=== PATIENT | female | born 1975 | race Caucasian/White ===

== ENCOUNTER 2019-03-21 16:35 | Emergency (ER) | payer BC, MEDICAID ==
[~2019-03-21] VITALS: Ht 160 cm; Wt 59.0 kg
[~2019-03-21 16:35] MED LIST: BUPR75TA4 OR; Ciprofloxacin Hydrochloride PO; IBU800T PO; Metronidazole PO; PROM25TA5 PO; TRAM50TA2 OR
[2019-03-21 17:01] VITALS: BP 147/84
== END 2019-03-21 18:05 | disposition home or self-care (01) ==
LOC: ER 16:35
DX: S90.112A Contusion of left great toe without damage to nail, initial encounter (principal); K21.9 Gastro-esophageal reflux disease without esophagitis; Z90.89 Acquired absence of other organs; F17.210 Nicotine dependence, cigarettes, uncomplicated; V28.4XXA Motorcycle driver injured in noncollision transport accident in traffic accident, initial encounter; Y93.89 Activity, other specified; Y99.8 Other external cause status; Y92.89 Other specified places as the place of occurrence of the external cause
CPT/HCPCS: 73630

== ENCOUNTER 2019-04-25 14:20 | Inpatient (IN) | payer BC, MEDICAID ==
[~2019-04-25] VITALS: Ht 160 cm; Wt 60.4 kg
[2019-04-25 15:29] LABS: Eosinophils # (auto) 0 uL; Lymphocytes # (auto) 0.6 uL; Mean Corpuscular Volume 84.5 fL (80.0-100.0); Monocytes # (auto) 0.4 uL; Neutrophils # (auto) 13.2 uL; White Blood Cell 14.3 10^3/uL (4.4-10.8)
[2019-04-25 15:32] LABS: Basophils # (auto) 0 uL; Basophils % (auto) 0.3 % (0.0-2.0); Hematocrit 41.1 % (36.0-46.0); Hemoglobin 13.5 g/dL (12.2-16.2); Lymphocytes % (auto) 4.3 % (10.0-50.0); Mean Corpuscular Hemoglobin 27.8 pg (28.0-32.0); Mean Corpuscular Hgb Conc. 32.8 g/dL (32.0-36.0); Monocytes % (auto) 2.6 % (0.0-12.0); Neutrophils % (auto) 92.8 % (37.0-80.0); Platelet Count (auto) 434 10^3/uL (140-450); Red Blood Cells 4.86 10^6/uL (4.0-5.20); Red Cell Distribution Width 16.3 % (11.8-14.3)
[2019-04-25 15:40] LABS: Alanine Aminotransferase 29 U/L (13-56); Albumin 4.4 g/dL (3.4-5.0); Anion Gap 15 (5-15); Aspartate Aminotransferase 32 U/L (15-37); BUN/Creatinine Ratio 29.3; Blood Urea Nitrogen 27 mg/dL (7-18); Calcium 9.7 mg/dL (8.5-10.1); Carbon Dioxide 24 mmol/L (21-32); Chloride 97 mmol/L (98-107); GFR African American 86 mL/min; GFR Non-African American 71 mL/min; Glucose 113 mg/dL (74-106); Potassium 3.6 mmol/L (3.5-5.1); Sodium 136 mmol/L (136-145)
[2019-04-25 15:45] LABS: Alkaline Phosphatase 97 U/L (45-117); Bilirubin, Total 0.5 mg/dL (0.2-1.0); Total Protein 8.7 g/dL (6.4-8.2)
[2019-04-25 15:53] LABS: Urine Bacteria NONE SEEN /hpf (None Seen); Urine Blood 2+ /uL (Negative); Urine Mucus FEW (None Seen); Urine Specific Gravity 1.037 (1.001-1.035); Urine WBC 3 /hpf (0 - 5)
[2019-04-25] MEDS ORDERED: SODIUM CHLORIDE 0.9% 1,000 ML IV ONE ×2 (18:39)
[2019-04-25] MEDS ORDERED: ONDANSETRON HCL 4 MG/2 ML VIAL IV ONE (18:45)
[2019-04-25] MEDS ORDERED: metroNIDAZOLE 500MG/100ML 100 ML IV ONE (19:30)
[2019-04-25] MEDS ORDERED: cefTRIAXone 1GM/50ML D5W 50 ML IV ONE (19:30)
[2019-04-25] MEDS ORDERED: cloNIDine HCL 0.1 MG TAB PO ONE (23:15)
[2019-04-26] MEDS ORDERED: ACETAMINOPHEN 325 MG TAB PO PRN (03:45)
[2019-04-26] MEDS ORDERED: cloNIDine HCL 0.1 MG TAB PO PRN (03:45)
[2019-04-26] MEDS ORDERED: HYDROcodone-ACET 5/325MG TAB PO PRN (03:45)
[2019-04-26] MEDS ORDERED: TEMAZEPAM 15 MG CAP PO PRN (03:45)
[2019-04-26] MEDS ORDERED: ONDANSETRON HCL 4 MG/2 ML VIAL IV PRN (03:45)
[2019-04-26 04:30] VITALS: BP 136/98
--- NOTE | 2019-04-26 04:30 | NUR ---
received pt from er nurse poc reviewed
[2019-04-26 04:36] LABS: Basophils # (auto) 0 uL; Basophils % (auto) 0.3 % (0.0-2.0); Eosinophils # (auto) 0 uL; Eosinophils % (auto) 0.1 % (0.0-7.0); Hematocrit 34.7 % (36.0-46.0); Hemoglobin 11.3 g/dL (12.2-16.2); Lymphocytes # (auto) 1.7 uL; Lymphocytes % (auto) 19.8 % (10.0-50.0); Mean Corpuscular Hemoglobin 27.8 pg (28.0-32.0); Mean Corpuscular Hgb Conc. 32.5 g/dL (32.0-36.0); Mean Corpuscular Volume 85.7 fL (80.0-100.0); Monocytes # (auto) 0.8 uL; Monocytes % (auto) 9.5 % (0.0-12.0); Neutrophils % (auto) 70.3 % (37.0-80.0); Platelet Count (auto) 312 10^3/uL (140-450); Red Blood Cells 4.05 10^6/uL (4.0-5.20); Red Cell Distribution Width 16.8 % (11.8-14.3); White Blood Cell 8.5 10^3/uL (4.4-10.8)
[2019-04-26 05:00] VITALS: BP 136/98
[2019-04-26 05:02] LABS: BUN/Creatinine Ratio 31.5; Calcium 8.5 mg/dL (8.5-10.1); Potassium 3.5 mmol/L (3.5-5.1)
[2019-04-26] MEDS ORDERED: IBUP800T24 PO (05:11)
[2019-04-26] MEDS: metroNIDAZOLE 500MG/100ML 100 ML IV SCH ×2 (05:52→14:32)
[2019-04-26] MEDS ORDERED: CIPROFLOXACIN 400MG/200ML 200 ML IV ONE (07:05)
--- NOTE | 2019-04-26 07:30 | NUR ---
Opening Note Received report from shift boss RN. Patient is awake, alert and oriented x4. No signs or symptoms of distress noted at this time. Patient denies pain at this time. Patient is on room air, respirations even and unlabored. Reviewed plan of care with patient, patient verbalized understanding. Bed in low and locked position,call light within reach. Will continue to monitor Q1 hour and PRN.
--- NOTE | 2019-04-26 07:40 | NUR ---
report given to am nurse poc reviewed
[2019-04-26 09:00] VITALS: BP 146/86
[2019-04-26] MEDS: ENALAPRIL MALEATE 10 MG TAB PO SCH (09:58)
[2019-04-26] MEDS: buPROPion HCL 75 MG TAB PO SCH (09:58)
--- NOTE | 2019-04-26 10:23 | NUR ---
Dr. Perez at bedside Updating patient on plan of care. Patient to have EGD tomorrow. Will continue to monitor Q1 hour and PRN.
[2019-04-26 11:25] LABS: INR 1.03 (0.9-1.15)
[2019-04-26 13:00] VITALS: BP 114/71
[2019-04-26] MEDS: PANTOPRAZOLE 40 MG TAB PO SCH ×2 (14:32→21:07)
[2019-04-26] MEDS: SODIUM CHLORIDE 0.9% 1,000 ML IV SCH (15:30)
[2019-04-26 17:00] VITALS: BP 105/66
--- NOTE | 2019-04-26 17:30 | NUR ---
consents signed and placed in chart
--- NOTE | 2019-04-26 19:11 | NUR ---
Closing Note Report given to warehouse shift supervisor RN. No signs or symptoms of distress noted at this time.
--- NOTE | 2019-04-26 19:30 | NUR ---
received pt from day rn poc reviewed
[2019-04-26] MEDS ORDERED: cefTRIAXone 1GM/50ML D5W 50 ML IV SCH (21:00)
--- NOTE | 2019-04-26 21:35 | NUR ---
pt had liquid green stool cdiff protocol initiated, specimen sent to lab as ordered
[2019-04-26 22:00] VITALS: BP 120/77
[2019-04-27] MEDS: metroNIDAZOLE 500MG/100ML 100 ML IV SCH ×3 (00:07→12:42)
--- NOTE | 2019-04-27 01:25 | NUR ---
pt npo at this time pt verbalized understanding of am procedure
[2019-04-27 05:00] VITALS: BP 154/89
[2019-04-27 06:38] LABS: Basophils # (auto) 0 uL; Basophils % (auto) 0.4 % (0.0-2.0); Eosinophils # (auto) 0.1 uL; Hematocrit 36.3 % (36.0-46.0); Hemoglobin 11.8 g/dL (12.2-16.2); Lymphocytes # (auto) 1.9 uL; Lymphocytes % (auto) 31.4 % (10.0-50.0); Mean Corpuscular Hemoglobin 27.8 pg (28.0-32.0); Mean Corpuscular Hgb Conc. 32.4 g/dL (32.0-36.0); Mean Corpuscular Volume 85.8 fL (80.0-100.0); Monocytes # (auto) 0.6 uL; Monocytes % (auto) 10.2 % (0.0-12.0); Neutrophils # (auto) 3.4 uL; Platelet Count (auto) 288 10^3/uL (140-450); Red Blood Cells 4.23 10^6/uL (4.0-5.20); Red Cell Distribution Width 16.3 % (11.8-14.3)
--- NOTE | 2019-04-27 06:40 | NUR ---
resting with eyes closed, resp even and unlabored, pt remains npo
--- NOTE | 2019-04-27 06:52 | NUR ---
report given to am nurse poc reviewed
[2019-04-27 07:02] LABS: Calcium 8.5 mg/dL (8.5-10.1); Potassium 3.4 mmol/L (3.5-5.1)
[2019-04-27 07:05] LABS: BUN/Creatinine Ratio 11.2
--- NOTE | 2019-04-27 07:30 | NUR ---
Opening Shift Note Assumed care of patient, awake, alert, and oriented. No S/S of distress/SOB or pain. Bed in low/locked position, bed rails up x2. Instructed on POC and to call for assist PRN with call light within reach. Will continue to monitor for changes Q1hr and PRN.
[2019-04-27] MEDS: SODIUM CHLORIDE 0.9% 1,000 ML IV SCH (08:10)
[2019-04-27] MEDS ORDERED: SODIUM CHLORIDE LOCK 10 ML ONE (08:17)
[2019-04-27] MEDS ORDERED: LIDOCAINE VISCOUS 2% 15ML UD ONE (08:17)
[2019-04-27] MEDS ORDERED: diphenhdrAMINE HCL 50 MG/1 ML VL ONE (08:18)
--- NOTE | 2019-04-27 08:35 | NUR ---
OFF UNIT PATIENT TAKEN TO OR FOR PROCEDURE
[2019-04-27] MEDS: MIDAZOLAM HCL 5 MG/ML-1ML VIAL ONE ×2 (08:57→09:00)
[2019-04-27] MEDS: fentaNYL CITRATE 100 MCG/2 ML VL ONE ×2 (08:57→09:00)
[2019-04-27 09:00] VITALS: BP 158/99
[2019-04-27] MEDS ORDERED: ONDANSETRON HCL 4 MG/2 ML VIAL ONE (09:01)
--- NOTE | 2019-04-27 09:40 | NUR ---
ON UNIT PATIENT ON UNIT FROM OR
[2019-04-27] MEDS: ENALAPRIL MALEATE 10 MG TAB PO SCH (09:57)
[2019-04-27] MEDS: PANTOPRAZOLE 40 MG TAB PO SCH (09:57)
[2019-04-27] MEDS: buPROPion HCL 75 MG TAB PO SCH (09:57)
[2019-04-27] MEDS ORDERED: POTASSIUM CHL 20 Meq TABLET PO ONE (10:30)
[2019-04-27] MEDS ORDERED: METR500T PO (11:43)
[2019-04-27] MEDS ORDERED: CIPR-217 PO (11:43)
[2019-04-27] MEDS ORDERED: PANT40TA2 PO (11:43)
[2019-04-27 12:05] VITALS: BP 158/99
[2019-04-27 13:00] VITALS: BP 125/77
--- NOTE | 2019-04-27 15:10 | NUR ---
Discharge instructions given as ordered. Encourage to follow up with PMD as instructed. All questions and concerns addressed. Patient verbalized understanding. IV removed with catheter intact, pressure dressing applied. Patient taken to vehicle via wheelchair with all personal belongings, accompanied by staff and family member. No distress noted at time of departure.
== END 2019-04-27 15:10 | disposition home or self-care (01) | DRG 241 ==
LOC: ER 14:20 → OVERFLOW 14:21 → WEST WING 04-26 04:31
PROVIDERS: ADMIT Nurse Practitioner; ATTEND Internal Medicine
PROC: 0DB68ZX Excision of Stomach, Via Natural or Artificial Opening Endoscopic, Diagnostic (ICD-10-PCS; principal; 2019-04-27 08:51)
DX: K29.81 Duodenitis with bleeding (principal); R65.10 Systemic inflammatory response syndrome (SIRS) of non-infectious origin without acute organ dysfunction; K52.9 Noninfective gastroenteritis and colitis, unspecified; E86.0 Dehydration; F32.9 Major depressive disorder, single episode, unspecified; F17.210 Nicotine dependence, cigarettes, uncomplicated; K42.9 Umbilical hernia without obstruction or gangrene; F41.9 Anxiety disorder, unspecified; K21.9 Gastro-esophageal reflux disease without esophagitis; Z90.710 Acquired absence of both cervix and uterus; Z90.89 Acquired absence of other organs; Z81.1 Family history of alcohol abuse and dependence; Z80.9 Family history of malignant neoplasm, unspecified; Z82.49 Family history of ischemic heart disease and other diseases of the circulatory system; Z71.6 Tobacco abuse counseling; Z79.899 Other long term (current) drug therapy
CPT/HCPCS: 36415; 43239; 74176; 80048; 80053; 81001; 83690; 83735; 84484; 84702; 85025; 85610; 87045; 87427; 87493; 93005; 96361; 96365; 96367; 96375; G0378; J0696; J2250; J2405; J3490

== ENCOUNTER 2020-07-23 05:56 | Inpatient (IN) | payer MEDICAID ==
[~2020-07-23] VITALS: Ht 160 cm; Wt 61.2 kg
[~2020-07-23 05:56] MED LIST changes: +CIPR500T4 PO; +METR500T PO; +PANT40TA2 PO; -TRAM50TA2 OR; +TRAM50TA2 PO
[2020-07-23 07:41] LABS: Urine Bacteria NONE SEEN /hpf (None Seen); Urine Blood 2+ /uL (Negative); Urine Hyaline Cast FEW /lpf (0 - 2); Urine Mucus FEW (None Seen); Urine Specific Gravity 1.035 (1.001-1.035); Urine WBC 3 /hpf (0 - 5)
[2020-07-23 08:02] LABS: Basophils # (auto) 0.1 10 ^3/uL (0-0.2); Basophils % (auto) 0.6 % (0.0-2.0); Eosinophils # (auto) 0 10 ^3/uL (0-0.8); Hematocrit 43.9 % (36.0-46.0); Hemoglobin 15.1 g/dL (12.2-16.2); Lymphocytes # (auto) 1.4 10 ^3/uL (0.4-5.4); Lymphocytes % (auto) 8.7 % (10.0-50.0); Mean Corpuscular Hgb Conc. 34.3 g/dL (32.0-36.0); Mean Corpuscular Volume 87.3 fL (80.0-100.0); Monocytes % (auto) 6.4 % (0.0-12.0); Neutrophils # (auto) 13.8 10 ^3/uL (1.6-8.6); Neutrophils % (auto) 84.3 % (37.0-80.0); Red Blood Cells 5.03 10^6/uL (4.0-5.20); White Blood Cell 16.3 10^3/uL (4.4-10.8)
[2020-07-23 08:14] LABS: INR 1.07 (0.9-1.15); Partial Thromboplastin Time 25.1 sec (23.0-31.2)
[2020-07-23 08:17] LABS: Albumin 4.5 g/dL (3.4-5.0); Anion Gap 14 (5-15); Blood Urea Nitrogen 26 mg/dL (7-18); Calcium 9.7 mg/dL (8.5-10.1); Carbon Dioxide 23 mmol/L (21-32); Chloride 95 mmol/L (98-107); Glucose 112 mg/dL (74-106); Lipase 134 U/L (73-393); Potassium 3.5 mmol/L (3.5-5.1); Sodium 132 mmol/L (136-145)
[2020-07-23 08:23] LABS: Alanine Aminotransferase 33 U/L (13-56); Alkaline Phosphatase 99 U/L (45-117); Aspartate Aminotransferase 30 U/L (15-37); BUN/Creatinine Ratio 25.5; Bilirubin, Total 0.5 mg/dL (0.2-1.0); GFR African American 75 mL/min; GFR Non-African American 62 mL/min; Total Protein 9.1 g/dL (6.4-8.2)
[2020-07-23 08:47] LABS: Amphetamine Screen, Urine NEGATIVE (NEGATIVE); Barbiturate Scree,Urine NEGATIVE (NEGATIVE); Benzodiazephine Screen, Urine NEGATIVE (NEGATIVE); Cannabinoid Screen, Urine POSITIVE (NEGATIVE); Cocaine Screen, Urine NEGATIVE (NEGATIVE)
[2020-07-23 08:54] LABS: Opiate Scree,Urine NEGATIVE (NEGATIVE); Phencyclidine Screen, Urine NEGATIVE (NEGATIVE)
[2020-07-23] MEDS ORDERED: ONDANSETRON HCL 4 MG/2 ML VIAL IV ONE (10:15)
[2020-07-23] MEDS ORDERED: CIPROFLOXACIN 400MG/200ML 200 ML IV ONE (10:15)
[2020-07-23] MEDS ORDERED: MORPHINE SULFATE 4 MG/ML SYR/VIAL IV ONE (10:15)
[2020-07-23] MEDS ORDERED: metroNIDAZOLE 500MG/100ML 100 ML IV ONE (10:15)
[2020-07-23] MEDS ORDERED: SODIUM CHLORIDE 0.9% 1,000 ML IV ONE ×2 (10:15→14:00)
[2020-07-23] MEDS ORDERED: MORPHINE SULFATE INJECTION 2 MG/ML SYRG IV PRN (14:00)
[2020-07-23] MEDS ORDERED: NITROGLYCERIN 0.4 MG SL TAB SL PRN (14:00)
[2020-07-23] MEDS ORDERED: metroNIDAZOLE 500MG/100ML 100 ML IV SCH (14:00)
[2020-07-23] MEDS ORDERED: PANT40TA2 PO (15:49)
[2020-07-23] MEDS ORDERED: BUPR-60 PO ×2 (15:49→15:52)
[2020-07-23] MEDS ORDERED: ONDA-155 PO ×2 (15:49→15:51)
[2020-07-23] MEDS ORDERED: PANT40T PO (15:50)
[2020-07-23] MEDS ORDERED: ONDA-180 PO (15:50)
[2020-07-23] MEDS: MORPHINE SULFATE INJECTION 2 MG/ML SYRG IV PRN ×2 (17:03→23:06)
[2020-07-23] MEDS: ONDANSETRON HCL 4 MG/2 ML VIAL IV PRN ×2 (17:03→23:06)
[2020-07-23] MEDS: metroNIDAZOLE 500MG/100ML 100 ML IV SCH (21:58)
[2020-07-24] MEDS ORDERED: hydrALAZINE HCL 20 MG/ML VL IV ONE (03:30)
[2020-07-24] MEDS: ONDANSETRON HCL 4 MG/2 ML VIAL IV PRN (05:07)
[2020-07-24] MEDS: MORPHINE SULFATE INJECTION 2 MG/ML SYRG IV PRN ×2 (05:07→22:47)
[2020-07-24] MEDS: metroNIDAZOLE 500MG/100ML 100 ML IV SCH ×3 (06:12→22:52)
[2020-07-24] MEDS: cefTRIAXone 1GM/50ML D5W 50 ML IV SCH (09:05)
[2020-07-24] MEDS: buPROPion HCL 75 MG TAB PO SCH (10:21)
[2020-07-24] MEDS ORDERED: LIDOCAINE VISCOUS 2% 15ML UD ONE (11:20)
[2020-07-24] MEDS ORDERED: diphenhdrAMINE HCL 50 MG/1 ML VL ONE (11:21)
[2020-07-24] MEDS ORDERED: ONDANSETRON HCL 4 MG/2 ML VIAL ONE (11:49)
[2020-07-24] MEDS: fentaNYL CITRATE 100 MCG/2 ML VL ONE ×2 (11:51→11:54)
[2020-07-24] MEDS: MIDAZOLAM HCL 5 MG/ML-1ML VIAL ONE ×2 (11:51→11:54)
[2020-07-24] MEDS: PROMETHAZINE HCL 25 MG/ML 1ML IV PRN ×2 (18:09→22:47)
[2020-07-24] MEDS: PANTOPRAZOLE 40 MG TAB PO SCH (22:52)
[2020-07-24 23:41] VITALS: BP 162/99
[2020-07-25] MEDS ORDERED: ENAL2.5T7 PO (00:06)
[2020-07-25 00:20] VITALS: BP 162/99
[2020-07-25] MEDS: PROMETHAZINE HCL 25 MG/ML 1ML IV PRN ×2 (04:04→09:22)
[2020-07-25 05:00] VITALS: BP 158/103
[2020-07-25 05:53] LABS: Basophils # (auto) 0 10 ^3/uL (0-0.2); Basophils % (auto) 0.2 % (0.0-2.0); Eosinophils # (auto) 0 10 ^3/uL (0-0.8); Eosinophils % (auto) 0.1 % (0.0-7.0); Hematocrit 38.3 % (36.0-46.0); Hemoglobin 12.9 g/dL (12.2-16.2); Lymphocytes # (auto) 1.3 10 ^3/uL (0.4-5.4); Lymphocytes % (auto) 15.8 % (10.0-50.0); Mean Corpuscular Hemoglobin 29.8 pg (28.0-32.0); Mean Corpuscular Hgb Conc. 33.8 g/dL (32.0-36.0); Mean Corpuscular Volume 88.4 fL (80.0-100.0); Monocytes # (auto) 0.6 10 ^3/uL (0-1.3); Monocytes % (auto) 7.3 % (0.0-12.0); Neutrophils # (auto) 6.2 10 ^3/uL (1.6-8.6); Neutrophils % (auto) 76.6 % (37.0-80.0); Red Blood Cells 4.33 10^6/uL (4.0-5.20)
[2020-07-25] MEDS: metroNIDAZOLE 500MG/100ML 100 ML IV SCH (05:54)
[2020-07-25 08:00] VITALS: BP_SYST 149; BP_SYST 160; BP_DIAS 101; BP_DIAS 99
[2020-07-25] MEDS: cefTRIAXone 1GM/50ML D5W 50 ML IV SCH (09:00)
[2020-07-25] MEDS ORDERED: ENALAPRIL MALEATE 2.5 MG TAB PO ONE (09:15)
[2020-07-25] MEDS: buPROPion HCL 75 MG TAB PO SCH (09:48)
[2020-07-25] MEDS: PANTOPRAZOLE 40 MG TAB PO SCH (09:48)
[2020-07-25 12:16] VITALS: BP 160/101
== END 2020-07-25 14:15 | disposition home or self-care (01) | DRG 720 ==
LOC: ER 05:56 → TELE 05:57 → TELE-CENTR 07-24 22:36
PROVIDERS: ADMIT Nurse Practitioner Acute Care; ATTEND Internal Medicine
PROC: 0DB68ZX Excision of Stomach, Via Natural or Artificial Opening Endoscopic, Diagnostic (ICD-10-PCS; 2020-07-24)
PROC: 0DB58ZX Excision of Esophagus, Via Natural or Artificial Opening Endoscopic, Diagnostic (ICD-10-PCS; principal; 2020-07-24 11:40)
DX: A41.9 Sepsis, unspecified organism (principal); I10 Essential (primary) hypertension; F41.9 Anxiety disorder, unspecified; F32.9 Major depressive disorder, single episode, unspecified; F17.210 Nicotine dependence, cigarettes, uncomplicated; Z20.822 Contact with and (suspected) exposure to COVID-19; K29.01 Acute gastritis with bleeding; K21.01 Gastro-esophageal reflux disease with esophagitis, with bleeding; Z82.49 Family history of ischemic heart disease and other diseases of the circulatory system; Z90.710 Acquired absence of both cervix and uterus; R11.2 Nausea with vomiting, unspecified; F12.10 Cannabis abuse, uncomplicated
CPT/HCPCS: 36415; 43239; 74176; 80053; 80307; 81001; 83605; 83690; 84484; 85025; 85610; 85730; 86850; 86900; 86901; 86920; 87040; 87426; 93005; 96365; 96367; 96375; 96376; G0378; J0696; J2250; J2405; J3490

== ENCOUNTER 2023-03-15 16:54 | Inpatient (IN) | payer BC, MEDICAID ==
[~2023-03-15] VITALS: Ht 160 cm; Wt 54.0 kg
[~2023-03-15 16:54] MED LIST changes: +BUPR-60 PO; -BUPR75TA4 OR; -CIPR500T4 PO; -Ciprofloxacin Hydrochloride PO; +ENAL1TAB42 PO; -IBU800T PO; -METR500T PO; -Metronidazole PO; +ONDA-155 PO; -PROM25TA5 PO; -TRAM50TA2 PO
[2023-03-15] MEDS ORDERED: cloNIDine HCL 0.1 MG TAB PO ONE (17:15)
[2023-03-15 17:16] LABS: Basophils # (auto) 0.1 10 ^3/uL (0-0.2); Basophils % (auto) 0.5 % (0.0-2.0); Eosinophils # (auto) 0.2 10 ^3/uL (0-0.8); Eosinophils % (auto) 1.5 % (0.0-7.0); Hematocrit 43.2 % (36.0-46.0); Hemoglobin 14.6 g/dL (12.2-16.2); Lymphocytes # (auto) 2.8 10 ^3/uL (0.4-5.4); Lymphocytes % (auto) 25.6 % (10.0-50.0); Mean Corpuscular Hemoglobin 30.9 pg (28.0-32.0); Mean Corpuscular Hgb Conc. 33.7 g/dL (32.0-36.0); Mean Corpuscular Volume 91.7 fL (80.0-100.0); Monocytes # (auto) 0.7 10 ^3/uL (0-1.3); Monocytes % (auto) 6.1 % (0.0-12.0); Neutrophils # (auto) 7.2 10 ^3/uL (1.6-8.6); Neutrophils % (auto) 66.3 % (37.0-80.0); Nucleated Red Blood Cells % 0.1 %; Red Blood Cells 4.71 10^6/uL (4.0-5.20); Red Cell Distribution Width 14.1 % (11.8-14.3); White Blood Cell 10.8 10^3/uL (4.4-10.8)
[2023-03-15 17:40] LABS: Alanine Aminotransferase 21 U/L (7-40); Albumin 4.6 g/dL (3.2-4.8); Alkaline Phosphatase 61 U/L (46-116); Anion Gap 9.5 (5-15); Aspartate Aminotransferase 23 U/L (13-40); BUN/Creatinine Ratio 13.3 (10.0-20.0); Bilirubin, Total 0.3 mg/dL (0.2-1.0); Blood Urea Nitrogen 11 mg/dL (9-23); Calcium 10.1 mg/dL (8.5-10.1); Carbon Dioxide 26.5 mmol/L (20-30); Chloride 102 mmol/L (98-107); Glucose 115 mg/dL (74-106); Potassium 3.5 mmol/L (3.5-5.1); Sodium 138 mmol/L (136-145); Total Protein 6.8 g/dL (5.7-8.2)
[2023-03-15] MEDS ORDERED: HEPARIN DRIP/D5W 100UNITS/ML 250 ML IV SCH (18:00)
[2023-03-15] MEDS ORDERED: HEPARIN SODIUM (PORCINE) 5000 UNITS/ML 1ML VIAL IV ONE (18:00)
[2023-03-15] MEDS ORDERED: ASPirin 81 mg TAB PO ONE (19:30)
[2023-03-15 19:41] LABS: INR 1.01 (0.9-1.15); Partial Thromboplastin Time 27.7 SEC (24.5-34.5); Prothrombin Time 10.6 sec (9.3-11.8)
[2023-03-15] MEDS ORDERED: NITROGLYCERIN 0.4 MG SL TAB SL PRN (19:45)
[2023-03-15] MEDS ORDERED: ACETAMINOPHEN 325 MG TAB PO PRN (19:45)
[2023-03-15] MEDS ORDERED: MORPHINE SULFATE INJ 2 MG/ml SYRG IV PRN (19:45)
[2023-03-15] MEDS ORDERED: ATORVASTATIN 20 MG TAB PO ONE (20:00)
[2023-03-15] MEDS ORDERED: CLOPIDOGREL 300 MG TAB PO ONE (20:00)
[2023-03-15] MEDS ORDERED: METOPROLOL TARTRATE 25 MG TAB PO ONE (20:00)
[2023-03-15] MEDS: SODIUM CHLORIDE 0.9% 1,000 ML IV SCH (20:09)
[2023-03-15 21:05] VITALS: PULSE 74; RESP 16; O2SAT 97
[2023-03-16] VITALS (12 sets, daily range): BP systolic 122–155; BP diastolic 64–94; PULSE 50–67; RESP 16–20; TEMP 97.9–98.8; O2SAT 96–100
[2023-03-16 02:41] LABS: Urine Bacteria FEW /hpf (None Seen); Urine Blood Negative /uL (Negative); Urine Clarity Clear (Clear); Urine Color Yellow (Yellow); Urine Mucus FEW (None Seen); Urine Protein, UAD Negative (Negative); Urine Specific Gravity 1.017 (1.001-1.035); Urine Urobilinogen Normal (Negative); Urine WBC 2 /hpf (0 - 5); Urine pH 5.5 (5.0-8.0)
[2023-03-16 02:43] LABS: Amphetamine Screen, Urine Neg (NEGATIVE); Barbiturate Scree,Urine Neg (NEGATIVE); Benzodiazephine Screen, Urine Neg (NEGATIVE); Cannabinoid Screen, Urine Pos (NEGATIVE); Cocaine Screen, Urine Neg (NEGATIVE); Phencyclidine Screen, Urine Neg (NEGATIVE)
[2023-03-16 03:12] LABS: INR 1.11 (0.9-1.15); Partial Thromboplastin Time 60.7 SEC (24.5-34.5); Prothrombin Time 11.6 sec (9.3-11.8)
[2023-03-16 04:08] LABS: Opiate Scree,Urine Neg (NEGATIVE)
[2023-03-16] MEDS: SODIUM CHLORIDE 0.9% 1,000 ML IV SCH (04:12)
[2023-03-16 05:55] LABS: Basophils # (auto) 0 10 ^3/uL (0-0.2); Basophils % (auto) 0.6 % (0.0-2.0); Eosinophils # (auto) 0.1 10 ^3/uL (0-0.8); Eosinophils % (auto) 2.2 % (0.0-7.0); Hematocrit 35.8 % (36.0-46.0); Lymphocytes # (auto) 2.5 10 ^3/uL (0.4-5.4); Lymphocytes % (auto) 36.9 % (10.0-50.0); Mean Corpuscular Hemoglobin 30.8 pg (28.0-32.0); Mean Corpuscular Hgb Conc. 33.5 g/dL (32.0-36.0); Monocytes # (auto) 0.5 10 ^3/uL (0-1.3); Neutrophils # (auto) 3.5 10 ^3/uL (1.6-8.6); Neutrophils % (auto) 53.3 % (37.0-80.0); Red Cell Distribution Width 14.3 % (11.8-14.3); White Blood Cell 6.6 10^3/uL (4.4-10.8)
[2023-03-16 06:06] LABS: Alanine Aminotransferase 15 U/L (7-40); Albumin 3.5 g/dL (3.2-4.8); Alkaline Phosphatase 44 U/L (46-116); Anion Gap 7.4 (5-15); Aspartate Aminotransferase 63 U/L (13-40); BUN/Creatinine Ratio 14.7 (10.0-20.0); Bilirubin, Total 0.4 mg/dL (0.2-1.0); Blood Urea Nitrogen 10 mg/dL (9-23); Calcium 8.6 mg/dL (8.5-10.1); Carbon Dioxide 26.6 mmol/L (20-30); Chloride 107 mmol/L (98-107); Cholesterol 136 mg/dL (< 200); Glucose 96 mg/dL (74-106); HDL Cholesterol 48 mg/dL (40-59); LDL Cholesterol 68 mg/dL (< 100); Potassium 3.4 mmol/L (3.5-5.1); Sodium 141 mmol/L (136-145); Total Protein 5.1 g/dL (5.7-8.2); Triglycerides 100 mg/dL (< 150)
[2023-03-16] MEDS ORDERED: POTASSIUM EFFERVESENT TAB 25 MEQ PO ONE ×2 (08:00→09:30)
[2023-03-16 08:17] LABS: INR 1.06 (0.9-1.15); Partial Thromboplastin Time 45.3 SEC (24.5-34.5); Prothrombin Time 11.1 sec (9.3-11.8)
[2023-03-16] MEDS ORDERED: HEPARIN DRIP/D5W 100UNITS/ML 250 ML IV SCH (08:45)
[2023-03-16] MEDS ORDERED: ATORVASTATIN 20 MG TAB PO ONE (09:15)
[2023-03-16] MEDS ORDERED: MAGNESIUM SULFATE 1GM/100ML 100 ML IV ONE (09:30)
[2023-03-16] MEDS: ASPirin-EC 81 mg tab PO SCH (10:13)
[2023-03-16] MEDS: PANTOPRAZOLE 40 MG/10 ML VIAL INJ IV SCH (10:13)
[2023-03-16] MEDS: LISINOPRIL 5 MG TAB PO SCH (10:14)
[2023-03-16] MEDS: METOPROLOL TARTRATE 25 MG TAB PO SCH ×2 (10:14→21:02)
[2023-03-16] MEDS ORDERED: HEPARIN SODIUM (PORCINE) 5000 UNITS/ML 1ML VIAL ONE (11:59)
[2023-03-16] MEDS ORDERED: ANGIOMAX 250 MG VIAL IV ONE (11:59)
[2023-03-16] MEDS ORDERED: fentaNYL CITRATE 100 MCG/2 ML VL ONE (12:00)
[2023-03-16] MEDS ORDERED: VERAPAMIL 2.5MG/ML INJ 2ML VIAL IV ONE (12:00)
[2023-03-16] MEDS ORDERED: MIDAZOLAM HCL 2MG/2ML 2ml VIAL (1mg/ml) ONE (12:00)
[2023-03-16] MEDS ORDERED: SODIUM CHL 0.9% 0 ML ONE (12:01)
[2023-03-16] MEDS ORDERED: LIDOCAINE 2%HCL (LOCAL ANESTH.) INJ 20ML MDV ONE (12:01)
[2023-03-16] MEDS ORDERED: IODIXANOL 320MG/ML 100ML BTL IV ONE (12:01)
[2023-03-16] MEDS ORDERED: PANT40TA2 PO (13:47)
[2023-03-16 18:10] LABS: INR 1.03 (0.9-1.15); Partial Thromboplastin Time 26.6 SEC (24.5-34.5); Prothrombin Time 10.8 sec (9.3-11.8)
[2023-03-16] MEDS ORDERED: cloNIDine HCL 0.1 MG TAB PO ONE (22:45)
[2023-03-17 05:00] VITALS: BP 139/84; PULSE 59; RESP 18; TEMP 98.5; O2SAT 95
[2023-03-17 07:43] LABS: Chloride 107 mmol/L (98-107); Potassium 4.1 mmol/L (3.5-5.1); Sodium 140 mmol/L (136-145)
[2023-03-17 07:44] LABS: Basophils # (auto) 0 10 ^3/uL (0-0.2); Basophils % (auto) 0.6 % (0.0-2.0); Eosinophils # (auto) 0.2 10 ^3/uL (0-0.8); Eosinophils % (auto) 2.4 % (0.0-7.0); Hematocrit 38.3 % (36.0-46.0); Hemoglobin 12.5 g/dL (12.2-16.2); Lymphocytes # (auto) 1.9 10 ^3/uL (0.4-5.4); Lymphocytes % (auto) 29.6 % (10.0-50.0); Mean Corpuscular Hemoglobin 30.9 pg (28.0-32.0); Mean Corpuscular Hgb Conc. 32.6 g/dL (32.0-36.0); Mean Corpuscular Volume 94.6 fL (80.0-100.0); Monocytes # (auto) 0.4 10 ^3/uL (0-1.3); Monocytes % (auto) 6.6 % (0.0-12.0); Neutrophils % (auto) 60.8 % (37.0-80.0); Red Blood Cells 4.05 10^6/uL (4.0-5.20); Red Cell Distribution Width 14.4 % (11.8-14.3); White Blood Cell 6.5 10^3/uL (4.4-10.8)
[2023-03-17 07:49] LABS: Glucose 70 mg/dL (74-106)
[2023-03-17 07:50] LABS: BUN/Creatinine Ratio 8.2 (10.0-20.0); Blood Urea Nitrogen 6 mg/dL (9-23)
[2023-03-17 08:00] VITALS: PULSE 55; PULSE 60; RESP 18; O2SAT 100
[2023-03-17 09:02] VITALS: BP 126/89; PULSE 61; RESP 18; TEMP 98.1; O2SAT 99
[2023-03-17 09:44] LABS: Hepatitis B Surface Antigen Negative (Negative)
[2023-03-17] MEDS: METOPROLOL TARTRATE 25 MG TAB PO SCH (10:00)
[2023-03-17 10:06] LABS: Hepatitis C Antibody Negative (Negative)
[2023-03-17] MEDS: ASPirin-EC 81 mg tab PO SCH (10:16)
[2023-03-17] MEDS: LISINOPRIL 5 MG TAB PO SCH (10:16)
[2023-03-17] MEDS: PANTOPRAZOLE 40 MG/10 ML VIAL INJ IV SCH (10:17)
[2023-03-17] MEDS ORDERED: ASPI-543 PO (10:33)
[2023-03-17] MEDS ORDERED: MET25T PO (10:33)
[2023-03-17] MEDS ORDERED: ATO40T PO (10:33)
[2023-03-17 13:30] VITALS: BP 139/84; PULSE 55; TEMP 36.7
[2023-03-17] MEDS ORDERED: ATORVASTATIN 20 MG TAB PO SCH (22:00)
== END 2023-03-17 14:05 | disposition home or self-care (01) | DRG 282 ==
LOC: ER 16:54 → TELE 19:42 → TELE-WESTW 03-16 16:20
PROVIDERS: ADMIT Internal Medicine; ATTEND Internal Medicine
PROC: 4A023N7 Measurement of Cardiac Sampling and Pressure, Left Heart, Percutaneous Approach (ICD-10-PCS; principal; 2023-03-16)
PROC: B211YZZ Fluoroscopy of Multiple Coronary Arteries using Other Contrast (ICD-10-PCS; 2023-03-16)
PROC: B215YZZ Fluoroscopy of Left Heart using Other Contrast (ICD-10-PCS; 2023-03-16)
DX: I21.4 Non-ST elevation (NSTEMI) myocardial infarction (principal); F11.90 Opioid use, unspecified, uncomplicated; F17.210 Nicotine dependence, cigarettes, uncomplicated; F32.A Depression, unspecified; F41.9 Anxiety disorder, unspecified; I10 Essential (primary) hypertension; I25.10 Atherosclerotic heart disease of native coronary artery without angina pectoris; K21.9 Gastro-esophageal reflux disease without esophagitis; E87.6 Hypokalemia; K90.0 Celiac disease; Z82.49 Family history of ischemic heart disease and other diseases of the circulatory system; Z82.5 Family history of asthma and other chronic lower respiratory diseases; Z90.710 Acquired absence of both cervix and uterus
CPT/HCPCS: 36415; 71045; 80048; 80053; 80061; 80307; 81001; 83036; 83735; 83880; 84443; 84484; 85025; 85379; 85610; 85730; 86803; 86850; 86900; 86901; 87340; 93005; 93306; 93458; 99152; 99291; C1894; C9113; G0378; J2250; Q9967